=== PATIENT | male | born 1965 | race Caucasian/White ===

== ENCOUNTER 2021-11-01 15:03 | Inpatient (IN) | payer OTHER ==
[~2021-11-01] VITALS: Ht 172.7 cm; Wt 88.9 kg
--- NOTE | 2021-11-01 15:33 | NUR ---
IV LINE IS ESTABLISHED, BLOOD SPECIMEN COLLECTED AND SENT TO THE LAB. THE LINE IS SALINE LOCKED.
--- NOTE | 2021-11-01 15:33 | NUR ---
BIBS FOR L UPPER CHEST/SHOULDER PAIN 03/11, DIZZINESS,NUMBNESS TO L HAND NOTED AT 1300. LWT 1230. IN ROOM AIR AND DENIES SOB. RESPIRATION REGULAR AND UNLABORED. ATTACHED TO THE MONITOR. WILL CONTINUE TO MONITOR THE PATIENT.
--- NOTE | 2021-11-01 15:47 | NUR ---
DR HERNANDEZ AT BEDSIDE FOR EVAL.
[2021-11-01 16:08] LABS: BASOPHILS % (AUTO) 0.6 % (0.0-2.0); EOSINOPHILS % (AUTO) 4.3 % (0.0-6.0); HEMATOCRIT 43 % (39-51); HEMOGLOBIN 14.4 g/dL (13.5-17.5); LYMPHOCYTES # (AUTO) 1.8 K/uL (0.8-4.8); LYMPHOCYTES % (AUTO) 26.7 % (20.0-44.0); MEAN CORPUSCULAR HGB CONC 34 g/dl (31.0-36.0); MEAN CORPUSCULAR VOLUME 100 fL (80-96); MONOCYTES # (AUTO) 0.7 K/uL (0.1-1.30); MONOCYTES % (AUTO) 10.8 % (2.0-12.0); NEUTROPHILS # (AUTO) 3.9 K/uL (1.8-8.9); NEUTROPHILS % (AUTO) 57.6 % (43.0-81.0); PLATELET COUNT (AUTO) 217 K/uL (150-450); RED BLOOD CELL COUNT(AUTO) 4.27 MIL/uL (4.5-6.0); WHITE BLOOD COUNT (AUTO) 6.8 K/uL (4.3-11.0)
[2021-11-01 16:22] LABS: CARBON DIOXIDE 30 mmol/L (21-32); CHLORIDE 105 mmol/L (98-107); CREATININE 1.1 mg/dL (0.6-1.3); GLUCOSE 93 mg/dL (74-106); POTASSIUM 4.3 mmol/L (3.5-5.1); SODIUM SERUM 139 mmol/L (136-145); UREA NITROGEN, BLOOD 17 mg/dL (7-18)
[2021-11-01] MEDS ORDERED: MELO-107 PO (16:36)
[2021-11-01] MEDS ORDERED: SIMV-46 PO (16:36)
[2021-11-01] MEDS ORDERED: ASPI-1169 PO (16:36)
[2021-11-01] MEDS ORDERED: SILD25TA10 PO (16:36)
[2021-11-01] MEDS ORDERED: OMEG100037 PO (16:36)
[2021-11-01] MEDS ORDERED: LORA10TA7 PO (16:36)
[2021-11-01] MEDS ORDERED: GLUC15006 PO (16:36)
[2021-11-01] MEDS ORDERED: FLAX1000 PO (16:36)
[2021-11-01] MEDS ORDERED: TELM40TA2 PO (16:36)
[2021-11-01] MEDS ORDERED: DOXY100T28 PO (16:36)
--- NOTE | 2021-11-01 17:16 | NUR ---
COVID ANTIGEN SWAB DONE AND SENT TO THE LAB
[2021-11-01] MEDS ORDERED: ONDANSETRON HCL/PF 4 MG/2 ML VIAL IVP PRN (18:00)
[2021-11-01] MEDS ORDERED: HYDROCODONE/APAP 5/325MG TABLET PO PRN (18:00)
[2021-11-01] MEDS ORDERED: MORPHINE SULFATE INJ 2 MG/ML DISP.SYRIN IV PRN (18:00)
[2021-11-01] MEDS ORDERED: MAG HYDROX/AL HYDROX/SIMETH 30 ML UDC PO PRN (18:00)
[2021-11-01] MEDS ORDERED: ENOXAPARIN SODIUM 40 MG/0.4 ML DISP.SYRIN SQ SCH ×2 (18:00→20:00)
[2021-11-01] MEDS ORDERED: TEMAZEPAM 15 MG CAPSULE PO PRN (18:00)
[2021-11-01] MEDS ORDERED: Z GUARD REMEDY 4 OZ OINT TP PRN (18:00)
[2021-11-01] MEDS ORDERED: MAGNESIUM HYDROXIDE 30 ML UDC PO PRN (18:00)
[2021-11-01] MEDS ORDERED: ACETAMINOPHEN 325 MG TABLET PO PRN (18:00)
--- NOTE | 2021-11-01 18:35 | NUR ---
CALLED NURSING SUP REGARDING PT BED
[2021-11-01] MEDS ORDERED: ASPIRIN 325 MG TABLET PO ONE (19:30)
--- NOTE | 2021-11-01 19:30 | NUR ---
REPORT GIVEN TO JUNIOR ASSISTANT MANAGER CAT ARREDONDO FOR OSE[facility].
--- NOTE | 2021-11-01 19:30 | NUR ---
Cami dominguez in [facility] - 11/01/21 at 1944 by [facility] REPORT GIVEN TO COMPUTED TOMOGRAPHY TECHNICIAN CAT ARREDONDO FOR [facility]SE[facility].
[2021-11-01] MEDS ORDERED: ENOXAPARIN SODIUM 40 MG/0.4 ML DISP.SYRIN SQ ONE (20:48)
[2021-11-01] MEDS ORDERED: ASPIRIN 325 MG TABLET ONE (20:49)
[2021-11-01] MEDS ORDERED: VALSARTAN 80 MG TABLET ONE (20:49)
[2021-11-01] MEDS ORDERED: ATORVASTATIN 10 MG TABLET ONE (20:49)
[2021-11-01] MEDS: ATORVASTATIN 10 MG TABLET PO SCH (20:59)
[2021-11-01] MEDS: VALSARTAN 80 MG TABLET PO SCH (20:59)
--- NOTE | 2021-11-01 22:25 | NUR ---
TELE 307-2
--- NOTE | 2021-11-01 22:42 | NUR ---
REPORT GIVEN TO TRE Alexandre RN FOR OSEAS
--- NOTE | 2021-11-01 23:05 | NUR ---
ADMISSION NOTES PT TRANSFERRED VIA [facility] @2305 AMBULATED FROM [facility] TO BED. PT IS STEAD. AOx4, ABLE TO MAKE NEEDS KNOWN. ON RA AND TOLERATING WELL. NO SOB NOTED. NO S/SX OF RESPIRATORY DISTRESS NOTED. TELE MONITOR DETECTS SINUS BRADYCARDIA WITH RATE OF 54. IV ACCESS IN LAC #18 . IV IS INTACT, PATENT, AND FLUSHING WELL. SAFETY PRECAUTIONS IN PLACE: BED IN LOWEST, LOCKED POSITION, SIDERAILS UPx2, AND BRAKES ON. TABLE AND CALL LIGHT WITHIN REACH. WILL CONTINUE TO MONITOR.
--- NOTE | 2021-11-01 23:13 | NUR ---
PATIENT TRANSFERRED TO VIA [facility]. VSS. ALL BELONGINGS WITH PT.
[2021-11-01 23:37] VITALS: BP 174/74
[2021-11-02 04:00] VITALS: BP 128/86
[2021-11-02 06:40] LABS: BASOPHILS % (AUTO) 0.8 % (0.0-2.0); EOSINOPHILS % (AUTO) 5.7 % (0.0-6.0); HEMATOCRIT 41 % (39-51); LYMPHOCYTES # (AUTO) 1.6 K/uL (0.8-4.8); LYMPHOCYTES % (AUTO) 33.1 % (20.0-44.0); MEAN CORPUSCULAR HGB CONC 34 g/dl (31.0-36.0); MEAN CORPUSCULAR VOLUME 100 fL (80-96); MONOCYTES # (AUTO) 0.5 K/uL (0.1-1.30); MONOCYTES % (AUTO) 10.6 % (2.0-12.0); NEUTROPHILS # (AUTO) 2.4 K/uL (1.8-8.9); NEUTROPHILS % (AUTO) 49.8 % (43.0-81.0); PLATELET COUNT (AUTO) 190 K/uL (150-450); RED BLOOD CELL COUNT(AUTO) 4.13 MIL/uL (4.5-6.0); WHITE BLOOD COUNT (AUTO) 4.9 K/uL (4.3-11.0)
--- NOTE | 2021-11-02 07:05 | NUR ---
RN CLOSING NOTES PT ASLEEP IN BED. AOx4, ABLE TO MAKE NEEDS KNOWN. ON RA AND TOLERATING WELL. NO SOB NOTED. NO S/SX OF RESPIRATORY DISTRESS NOTED. TELE MONITOR DETECTS SINUS BRADYCARDIA WITH RATE OF 40-50S. IV ACCESS IN LAC #18 . IV IS INTACT, PATENT, AND FLUSHING WELL. ALL NEED MET. PT KEPT CLEAN AND DRY. SAFETY PRECAUTIONS IN PLACE: BED IN LOWEST, LOCKED POSITION, SIDERAILS UPx2, AND BRAKES ON. TABLE AND CALL LIGHT WITHIN REACH. WILL ENDORSE TO ONCOMING SHIFT FOR OSEAS.
[2021-11-02] MEDS ORDERED: PANTOPRAZOLE 40 MG TABLET.DR PO SCH (07:30)
[2021-11-02 07:37] LABS: THYROID STIMULATING HORMONE 3.433 uIU/mL (0.358-3.74)
[2021-11-02 08:00] VITALS: BP 147/74
--- NOTE | 2021-11-02 08:00 | NUR ---
tele electronics department manager: cardio consult seen and examined by dr. ridley with order for ct angio. pt aware and consent signed.
[2021-11-02] MEDS ORDERED: ASPIRIN 81 MG TAB.CHEW PO SCH (09:00)
--- NOTE | 2021-11-02 09:00 | NUR ---
tele prototype fabricator: md visit seen and examined by dr. morales.
[2021-11-02 09:34] LABS: CHOLESTEROL 193 mg/dL (<200); HDL CHOLESTEROL 64 mg/dL (40-60); LDL 102 mg/dL (0-99); TRIGLYCERIDES 146 mg/dL (30-150)
[2021-11-02] MEDS ORDERED: IOHEXOL-350 100 ML VIAL IV ONE (09:45)
[2021-11-02] MEDS ORDERED: NITROGLYCERIN 0.4 MG/TAB BOTTLE ONE (09:46)
[2021-11-02] MEDS ORDERED: CT SWABBABLE VALVE TRANS SET 1 EA INFUS.SET MC ONE (09:46)
[2021-11-02] MEDS ORDERED: IV NS 0.9% 250 ML IV ONE (09:46)
[2021-11-02] MEDS ORDERED: METOPROLOL TARTRATE INJ 5 MG/5 ML AMPUL ONE (09:46)
--- NOTE | 2021-11-02 10:00 | NUR ---
tele environmental engineer scientist: notes down to radiology dept via w/c accompanied by tech.
[2021-11-02] MEDS: ATORVASTATIN 10 MG TABLET PO SCH (10:01)
[2021-11-02] MEDS: VALSARTAN 80 MG TABLET PO SCH (10:02)
--- NOTE | 2021-11-02 10:40 | NUR ---
Explained procedure to patient. All questions answered. Vital signs monitored. Procedure tolerated well.
[2021-11-02 10:50] LABS: CALCIUM, SERUM 9.1 mg/dL (8.5-10.1); CARBON DIOXIDE 24 mmol/L (21-32); CHLORIDE 106 mmol/L (98-107); CREATININE 0.9 mg/dL (0.6-1.3); GLUCOSE 93 mg/dL (74-106); MAGNESIUM 2.5 mg/dL (1.8-2.4); PHOSPHORUS 4.5 mg/dL (2.5-4.9); POTASSIUM 4.2 mmol/L (3.5-5.1); SODIUM SERUM 141 mmol/L (136-145); UREA NITROGEN, BLOOD 14 mg/dL (7-18)
[2021-11-02] MEDS: METOPROLOL TARTRATE INJ 5 MG/5 ML AMPUL IVP ONE ×2 (10:59→11:02)
[2021-11-02] MEDS ORDERED: NITROGLYCERIN 0.4 MG/TAB BOTTLE SL ONE (11:00)
--- NOTE | 2021-11-02 11:00 | NUR ---
tele construction engineering manager: notes back from ct angio. no c/o pain or any discomfort. instructed to call for assistance. will continue to monitor.
[2021-11-02 12:00] VITALS: BP 120/71
--- NOTE | 2021-11-02 13:10 | NUR ---
tele chainstitch hemmer: notes ct angio normal. dr. morales and dr. ridley aware. dr. morales will put a discharge order per cn. pt made aware. awaiting d'c home order. will continue to monitor.
--- NOTE | 2021-11-02 13:54 | NUR ---
tele customer service advocate: notes received d'c order from dr. morales. order acknowledged.
--- NOTE | 2021-11-02 14:22 | NUR ---
tele ornamental brick installer: notes discharge instructions given to pt and verbalized understanding. h/l removed with tip intact. tele removed. pt drove himself here and leaving by own car.
--- NOTE | 2021-11-02 14:35 | NUR ---
tele oncology nurse navigator: notes discharged home in stable condition via own private car with d'c papers and valuables.
== END 2021-11-02 14:30 | disposition home or self-care (01) | DRG 206 ==
LOC: ER 15:12 → TRANSITION 19:12 → TELE 22:27
PROVIDERS: ADMIT Nurse Practitioner Acute Care; ATTEND Internal Medicine
DX: M94.0 Chondrocostal junction syndrome [Tietze] (principal); E78.5 Hyperlipidemia, unspecified; I10 Essential (primary) hypertension; Z20.822 Contact with and (suspected) exposure to COVID-19; E66.9 Obesity, unspecified; Z68.29 Body mass index [BMI] 29.0-29.9, adult; Z87.891 Personal history of nicotine dependence; Z86.16 Personal history of COVID-19; M77.8 Other enthesopathies, not elsewhere classified; L71.9 Rosacea, unspecified
CPT/HCPCS: 36415; 70450-TC; 71045-TC; 75574; 80048-TC; 80061-TC; 82962-TC; 83735-TC; 84100-TC; 84443-TC; 84484-TC; 85025-TC; 85378-TC; 87081-TC; 93307-TC; G0378; J1650; J3490; J7050; Q9967